=== PATIENT | male | born 1990 | race African-American/Black ===

== ENCOUNTER 2017-03-03 17:41 | Emergency (ER) | payer OTHER ==
[~2017-03-03] VITALS: Ht 190.5 cm; Wt 105.0 kg
[2017-03-03 17:42] VITALS: BP 176/100; PULSE 108; RESP 12; TEMP 98.2; O2SAT 95
[2017-03-03 17:55] VITALS: BP 138/85; PULSE 99; RESP 16; O2SAT 100
--- NOTE | 2017-03-03 17:57 | PD ---
HPI Chief Complaint: Chest Pain Time Seen by Provider: 17:55 Travel History International Travel<30 days: No Contact w/Intl Traveler<30days: No Traveled to known affect area: No History of Present Illness HPI 26-year-old male patient with previous history of cardiac catheterization done in [place], he is not sure what they found, but does not think that they put in the stents for him, hypertension, presents to the ER today because of substernal chest discomfort which she states is a 7 out of 10 with some shortness of breath. He states that he has been occurring intermittently. He denies any coughing, fevers, or any other symptoms. Modifying Factors: None Associated Signs & Symptoms: Chest discomfort, shortness of breath Risk Factors: Hypertension, previous heart catheter PFSH Social History Tobacco Use: No Allergies-Medications (Allergen,Severity, Reaction): Coded Allergies: No Known Allergies (Unverified , 03/03/17) Reported Meds & Prescriptions Reported Meds & Active Scripts Active Reported Omeprazole 20 Mg Tab 20 Mg PO DAILY Review of Systems Except as stated in HPI: all other systems reviewed are Neg Physical Exam Narrative GENERAL: Well-developed young -[place] male patient currently in mild distress at awake and oriented 3. SKIN: Focused skin assessment warm/dry. HEAD: Atraumatic. Normocephalic. EYES: Pupils equal and round. No scleral icterus. No injection or drainage. ENT: No nasal bleeding or discharge. Mucous membranes pink and moist. NECK: Trachea midline. No JVD. CARDIOVASCULAR: Regular rate and rhythm. No murmur appreciated. Pulses are present and equal bilaterally. RESPIRATORY: No accessory muscle use. Clear to auscultation. Breath sounds equal bilaterally. GASTROINTESTINAL: Abdomen soft, non-tender, nondistended. Hepatic and splenic margins not palpable. MUSCULOSKELETAL: No obvious deformities. No clubbing. No cyanosis. No edema. NEUROLOGICAL: Awake and alert. No obvious cranial nerve deficits. Motor grossly within normal limits. Normal speech. PSYCHIATRIC: Appropriate mood and affect; insight and judgment normal. Data Data Last Documented VS Vital Signs Date Time Temp Pulse Resp B/P (MAP) Pulse Ox O2 Delivery O2 Flow Rate FiO2 03/03/17 17:55 100 Room Air 03/03/17 17:55 99 16 03/03/17 17:42 98.2 Orders Orders Electrocardiogram (03/03/17 17:52) Ckmb (Isoenzyme) Profile (03/03/17 17:52) Complete Blood Count With Diff (03/03/17 17:52) Comprehensive Metabolic Panel (03/03/17 17:52) Magnesium (Mg) (03/03/17 17:52) Prothrombin Time / Inr (Pt) (03/03/17 17:52) Act Partial Throm Time (Ptt) (03/03/17 17:52) Troponin I (03/03/17 17:52) Chest, Single Ap (03/03/17 17:52) Ecg Monitoring (03/03/17 17:52) Bilateral Bp Monitoring (03/03/17 17:52) Iv Access Insert/Monitor (03/03/17 17:52) Oximetry (03/03/17 17:52) Oxygen Administration (03/03/17 17:52) Sodium Chloride 0.9% Flush (Ns Flush) (03/03/17 18:00) MDM Medical Decision Making Medical Screen Exam Complete: Yes Emergency Medical Condition: Yes Medical Record Reviewed: Yes Interpretation(s) EKG shows normal sinus rhythm with a right bundle branch pattern at a rate of 97 bpm. No signs of significant ST elevations or depressions. LVH. Differential Diagnosis Chest discomfort: Dysrhythmias versus ACS versus anxiety Narrative Course Cardiac workup was initiated in the ER for further evaluation. Chest x-ray did not show any signs of acute processes. Physician Communication Physician Communication Case was discussed with Dr. Collins and signed out to her at 7 PM. Disposition based on workup. Diagnosis Primary Impression: Chest pain Lucía Sumner MD Mar 03, 2017 17:57
[2017-03-03] MEDS ORDERED: SODIUM CHLORIDE 0.9% FLUSH 10 ML FLUSH IVF PRN (18:00)
[2017-03-03] MEDS ORDERED: OMEP20TA93 PO (18:02)
--- NOTE | 2017-03-03 19:11 | RADRPT ---
EXAM DATE/TIME: 03/03/2017 18:23 [facility] COMPARISON: No previous studies available for comparison. INDICATIONS : Shortness of breath, chest tightness, lightheaded and dizziness. MEDICAL HISTORY : None. SURGICAL HISTORY : Cardiac catheterization. ENCOUNTER: Initial ACUITY: 1 day PAIN SCORE: 0/10 LOCATION: Bilateral chest FINDINGS: Single AP view of the chest. The lungs are clear. Cardiomediastinal silhouette within normal limits. No evidence of pleural effusion or pneumothorax. CONCLUSION: No acute cardiopulmonary disease identified. Guevara Razo MD on March 03, 2017 at 19:08 Board Certified Radiologist. This report was verified electronically.
[2017-03-03 19:41] LABS: AUTOMATED NEUTROPHIL # 3.6 TH/MM3 (1.8-7.7); BASOPHIL % 0.6 % (0.0-2.0); EOSINOPHIL % 0.3 % (0.0-4.0); HEMATOCRIT 42.6 % (39.0-51.0); HEMOGLOBIN 14.4 GM/DL (13.0-17.0); LYMPH % 27.8 % (9.0-44.0); LYMPHOCYTE # 1.7 TH/MM3 (1.0-4.8); MEAN CELL VOLUME 91.2 FL (80.0-100.0); MEAN CORPUSCULAR HEMOGLOBIN 30.9 PG (27.0-34.0); MEAN CORPUSCULAR HGB CONC 33.8 % (32.0-36.0); MONO % 11.3 % (0.0-8.0); MONOCYTE # 0.7 TH/MM3 (0-0.9); PLATELET COUNT 279 TH/MM3 (150-450); RED BLOOD COUNT 4.67 MIL/MM3 (4.50-5.90); RED CELL DISTRIBUTION WIDTH 12.7 % (11.6-17.2)
[2017-03-03 19:55] LABS: AST (GOT) 19 U/L (15-37); BICARBONATE 25.3 MEQ/L (21.0-32.0); BLOOD UREA NITROGEN 12 MG/DL (7-18); CALCIUM 8.6 MG/DL (8.5-10.1); CHLORIDE 105 MEQ/L (98-107); CREATININE 0.89 MG/DL (0.60-1.30); GLOMERULAR FILTRATION RATE 127 ML/MIN (>89); GLUCOSE,RANDOM 94 MG/DL (74-106); MAGNESIUM 1.6 MG/DL (1.5-2.5); SODIUM (NA) 139 MEQ/L (136-145)
[2017-03-03 19:56] LABS: ALT (GPT) 46 U/L (12-78)
[2017-03-03 19:57] LABS: INTERNATIONAL NORMALIZED RATIO 1.1 RATIO; PROTHROMBIN TIME - PATIENT 10.8 SEC (9.8-11.6)
[2017-03-03 20:00] LABS: ALKALINE PHOSPHATASE 63 U/L (45-117); TOTAL BILIRUBIN ADULT 0.4 MG/DL (0.2-1.0); TOTAL PROTEIN 7.8 GM/DL (6.4-8.2); TROPONIN I 0.07 NG/ML (0.02-0.05)
[2017-03-03 20:33] VITALS: BP 136/86; PULSE 88; RESP 12; TEMP 98.2; O2SAT 95
--- NOTE | 2017-03-03 22:22 | PD ---
Data Data Last Documented VS Vital Signs Date Time Temp Pulse Resp B/P (MAP) Pulse Ox O2 Delivery O2 Flow Rate FiO2 03/03/17 20:33 98.2 88 12 136/86 (103) 95 03/03/17 17:55 Room Air Orders Orders Electrocardiogram (03/03/17 17:52) Ckmb (Isoenzyme) Profile (03/03/17 17:52) Complete Blood Count With Diff (03/03/17 17:52) Comprehensive Metabolic Panel (03/03/17 17:52) Magnesium (Mg) (03/03/17 17:52) Prothrombin Time / Inr (Pt) (03/03/17 17:52) Act Partial Throm Time (Ptt) (03/03/17 17:52) Troponin I (03/03/17 17:52) Chest, Single Ap (03/03/17 17:52) Ecg Monitoring (03/03/17 17:52) Bilateral Bp Monitoring (03/03/17 17:52) Iv Access Insert/Monitor (03/03/17 17:52) Oximetry (03/03/17 17:52) Oxygen Administration (03/03/17 17:52) Sodium Chloride 0.9% Flush (Ns Flush) (03/03/17 18:00) CKMB (03/03/17 18:13) CKMB% (03/03/17 18:13) Troponin I (03/03/17 21:30) Labs Laboratory Tests Test 03/03/17 18:13 03/03/17 21:25 White Blood Count 6.0 TH/MM3 Red Blood Count 4.67 MIL/MM3 Hemoglobin 14.4 GM/DL Hematocrit 42.6 % Mean Corpuscular Volume 91.2 FL Mean Corpuscular Hemoglobin 30.9 PG Mean Corpuscular Hemoglobin Concent 33.8 % Red Cell Distribution Width 12.7 % Platelet Count 279 TH/MM3 Mean Platelet Volume 9.0 FL Neutrophils (%) (Auto) 60.0 % Lymphocytes (%) (Auto) 27.8 % Monocytes (%) (Auto) 11.3 % Eosinophils (%) (Auto) 0.3 % Basophils (%) (Auto) 0.6 % Neutrophils # (Auto) 3.6 TH/MM3 Lymphocytes # (Auto) 1.7 TH/MM3 Monocytes # (Auto) 0.7 TH/MM3 Eosinophils # (Auto) 0.0 TH/MM3 Basophils # (Auto) 0.0 TH/MM3 CBC Comment DIFF FINAL Differential Comment Prothrombin Time 10.8 SEC Prothromb Time International Ratio 1.1 RATIO Activated Partial Thromboplast Time 27.1 SEC Blood Urea Nitrogen 12 MG/DL Creatinine 0.89 MG/DL Random Glucose 94 MG/DL Total Protein 7.8 GM/DL Albumin 4.0 GM/DL Calcium Level 8.6 MG/DL Magnesium Level 1.6 MG/DL Alkaline Phosphatase 63 U/L Aspartate Amino Transf (AST/SGOT) 19 U/L Alanine Aminotransferase (ALT/SGPT) 46 U/L Total Bilirubin 0.4 MG/DL Sodium Level 139 MEQ/L Potassium Level 3.1 MEQ/L Chloride Level 105 MEQ/L Carbon Dioxide Level 25.3 MEQ/L Anion Gap 9 MEQ/L Estimat Glomerular Filtration Rate 127 ML/MIN Total Creatine Kinase 274 U/L Creatine Kinase MB 1.0 NG/ML Troponin I 0.07 NG/ML 0.06 NG/ML [facility] Supervised Visit with [place]: No Narrative Course This is a 26-year-old male who has a history of cocaine abuse who presents to the emergency department with atypical chest pain. EKG demonstrates a conduction delay and left ventricular hypertrophy. I reviewed the patient's records from [facility]. The patient had a cardiac catheterization on November 17, 2016 showing normal coronary arteries and a normal left ventricular function. His initial troponin here was 0.07. It was repeated and it was 0.06. Given the patient had a normal cardiac catheterization in November of this year this is very reassuring that the patient doesn't have coronary artery disease. He was observed on telemetry for 4 hours in the emergency department and had no episodes of arrythmia. His troponin is downward trending. I don't think the patient requires any additional cardiac intervention at this time and this likely reflects cocaine chest pain. I think he can safely be discharged and he was referred to cardiology as an outpatient. Diagnosis Primary Impression: Chest pain Qualified Codes: R07.9 - Chest pain, unspecified Patient Instructions: General Instructions Additional Instruction: If you develop severe chest pain, shortness of breath, sweating, lightheadedness , dizziness or difficulty breathing return to the emergency department immediately. Followup with your primary care physician in 2-3 days if your symptoms are not resolved. Med/Other Pt SpecificInfo: No Change to Meds Disposition: 01 DISCHARGE HOME Condition: Stable Yadira Collins MD Mar 03, 2017 22:22
--- NOTE | 2017-03-04 07:33 | EKG ---
Date Performed: 03/03/2017 Time Performed: 17:59:17 PTAGE: 26 years EKG: Sinus rhythm LEFT VENTRICULAR HYPERTROPHY AND ST-T CHANGE ABNORMAL ECG NO PREVIOUS TRACING DOCTOR: Xander Holt Interpretating Date/Time 03/04/2017 07:32:52
== END 2017-03-03 22:41 | disposition home or self-care (01) ==
LOC: NEPC 17:41
DX: R07.89 Other chest pain (principal); R06.02 Shortness of breath; R94.31 Abnormal electrocardiogram [ECG] [EKG]
CPT/HCPCS: 71010; 80053; 82550; 82552; 83735; 84484; 85025; 85610; 85730; 93005; 99285